=== PATIENT | female | born 1965 | race Caucasian/White ===

== ENCOUNTER 2019-06-28 22:46 | Emergency (ER) | payer MEDICARE ==
[~2019-06-28] VITALS: Ht 172.7 cm; Wt 99.8 kg
[2019-06-29] MEDS ORDERED: REGLAN 10 MG TA10 MG PO (00:34)
[2019-06-29 00:51] VITALS: BP 99/54
--- NOTE | 2019-06-29 18:32 | EKG ---
[place] [address] ELECTROCARDIOGRAM REPORT Name: MALACHI SANDOVAL Room: [facility]#: [id number] Admission: 06/28/19 Attend Phys: Discharge: 06/29/19 Date of : 65 Report #: [id number] THIS REPORT FOR: //name// [facility] ED Test Date: 2019-06-29 Test Time: 00:03:25 Pat Name: MALACHI SANDOVAL Department: Room: Gender: F Telecommunications Switch Technician: LACEY : 1965 Requested By: [place] Order Number: [id number] MD: Davian Vivar Measurements Intervals [place] Rate: 58 P: 36 OK: 162 QRS: 36 QRSD: 113 T: 13 QT: 472 QTc: 464 Interpretive Statements Sinus rhythm No previous ECG available for comparison Electronically Signed On 06-29-2019 18:32:06 CDT by Davian Vivar [email or web address] <ELECTRONICALLY SIGNED> By: Davian Vivar MD, [facility] 06/29/19 1832 0003 0003 Davian Vivar MD, FACC /EPI
== END 2019-06-29 00:53 | disposition home or self-care (01) ==
LOC: M.ERS 22:46
DX: R11.10 Vomiting, unspecified (principal); F41.9 Anxiety disorder, unspecified; Z88.0 Allergy status to penicillin